=== PATIENT | female | born 1995 | race Caucasian/White ===

== ENCOUNTER 2016-05-28 14:18 | Emergency (ER) | payer BC, OTHER ==
[~2016-05-28] VITALS: Ht 162.6 cm; Wt 45.4 kg
[2016-05-28] MEDS ORDERED: NOHOMEMEDICATIONS (14:33)
[2016-05-28 14:43] LABS: URINE BLOOD TRACE (Negative); URINE COLOR YELLOW; URINE GLUCOSE-RANDOM* NEGATIVE (Negative); URINE KETONES 3+ (Negative); URINE NITRITE NEGATIVE (Negative); URINE PROTEIN (DIPSTICK) TRACE (Negative); URINE SPECIFIC GRAVITY 1.025 (1.003-1.035); URINE UROBILINOGEN 0.2 E.U./dl (0.2-1.0)
[2016-05-28 14:47] LABS: URINE BILIRUBIN NEGATIVE (Negative)
[2016-05-28 14:51] LABS: ABSOLUTE NEUTROPHILS 4.6 thou/uL (1.4-8.2); BASOPHILS 0.3 % (0.0-2.0); EOSINOPHILS 0.1 % (0.0-3.0); HEMATOCRIT 46.3 % (37.0-47.0); HEMOGLOBIN 15.9 gm/dL (12.0-15.0); LYMPHOCYTES 11.3 % (24.0-44.0); MCH 30.7 pg (26.0-34.0); MCHC 34.3 % (28.0-37.0); MCV 89.6 fL (80.0-100.0); MONOCYTES 9.7 % (1.0-8.0); PLATELET COUNT 154 thou/uL (150-400); POLYS 78.6 % (36.0-66.0); RBC 5.17 mil/uL (4.20-5.00); RDW 12.8 % (10.5-14.5); WBC 5.9 thou/uL (4.0-11.0)
[2016-05-28 14:52] LABS: MANUAL DIFF NO
[2016-05-28 14:54] LABS: CALCIUM 9.2 mg/dL (8.5-10.1); CREATININE 0.9 mg/dL (0.6-1.3); POTASSIUM 3.9 mmol/L (3.5-5.1)
[2016-05-28 15:00] LABS: ALBUMIN 4.1 g/dL (3.4-5.0); TOTAL BILIRUBIN 0.3 mg/dL (<0.1-1.0); TOTAL PROTEIN 7.7 g/dL (6.4-8.2)
[2016-05-28] MEDS ORDERED: LEVSIN0.125 MG PO (16:27)
[2016-05-28] MEDS ORDERED: CARAFATE 1 GM TA1 G1 PO (16:27)
[2016-05-28] MEDS ORDERED: OMEPRAZOLE20 M1 PO (16:27)
[2016-05-28 16:38] VITALS: BP 112/67
== END 2016-05-28 16:38 | disposition home or self-care (01) ==
LOC: ER 14:18
PROVIDERS: Physician Assistant
DX: T36.95XA Adverse effect of unspecified systemic antibiotic, initial encounter (principal); R10.13 Epigastric pain; R19.7 Diarrhea, unspecified; R11.0 Nausea; F10.99 Alcohol use, unspecified with unspecified alcohol-induced disorder; Y92.9 Unspecified place or not applicable